=== PATIENT | male | born 1950 | race Caucasian/White ===

== ENCOUNTER 2018-03-27 11:32 | Day surgery (SDC) | payer MEDICARE, BC ==
[~2018-03-27] VITALS: Ht 188 cm; Wt 136.1 kg
[~2018-03-27 11:32] MED LIST: ALLO100 PO; ALLO300 PO; ALPR.5 PO; ASPI325 PO; ATOR10 PO; ATOR20 PO; BENAML20/5 PO; CELE100 PO; CELE200 PO; COLCHICINE0.6 MG PO; COLCRYS0.6 MG PO; CRANBERRY250 MG PO; CRANBERRY500 M1 PO; CRUTCH2 USE; Coq-10100 MG PO; Cranberry500 M1 PO; Cyclobenzaprine5 MG PO; GLIP2.5ER PO; GLIP5 PO; GLUC500 PO; Hair, Skin & N1 EACH PO; IBUP600 PO; METF500 PO; METF500C PO; MULVITMIND PO; Multiple Vitam1 EAC1 PO; OMEGA 3 KRILL OIL PO; OMEPRAZOLE MAGN20 MG PO; OXYACE5T PO; OXYC15ER PO; OXYC5 PO; Omega 3 1,0001 EACH PO; Red Yeast Rice600 MG; TESTOSTERONE IM; UBID10; XARELTO10 MG PO; [UNRECOGNIZED DRUG - OTHER]
--- NOTE | 2018-03-27 13:57 | NUR ---
03/27/18 1359 Jahaira Coleman 1315 assumed care of pt from [facility].jst. pt sitting up in chair w/foot up on pillow. ice pack w/instructions for use placed. drinking cranberry juice no c/o nausea and denied pain
== END 2018-03-27 13:57 | disposition home or self-care (01) ==
LOC: ORSCSDS 11:32
PROVIDERS: Podiatrist
PROC: 0Y6Y0Z0 Detachment at Left 5th Toe, Complete, Open Approach (ICD-10-PCS; principal; 2018-03-27 12:30)
DX: L97.521 Non-pressure chronic ulcer of other part of left foot limited to breakdown of skin (principal); E11.621 Type 2 diabetes mellitus with foot ulcer; L85.9 Epidermal thickening, unspecified; I10 Essential (primary) hypertension; I25.10 Atherosclerotic heart disease of native coronary artery without angina pectoris; G47.33 Obstructive sleep apnea (adult) (pediatric); Z87.891 Personal history of nicotine dependence; E11.9 Type 2 diabetes mellitus without complications; E66.9 Obesity, unspecified; Z68.38 Body mass index [BMI] 38.0-38.9, adult; Z79.899 Other long term (current) drug therapy
CPT/HCPCS: 82947; 88305; 88311; J0690; J2250; J3010; J7120

== ENCOUNTER → 2019-08-14 | Outpatient (CLI) | payer MEDICARE, BC | END | disposition home or self-care (01) | LOC: LAB 08:32 → LAB SHORT 08:32 | DX: L90.5 Scar conditions and fibrosis of skin (principal) | CPT/HCPCS: 88305 ==

== ENCOUNTER → 2020-06-21 | Outpatient (CLI) | payer MEDICARE, BC | LOC: LAB SHORT 12:18 | DX: L82.1 Other seborrheic keratosis (principal) | CPT/HCPCS: 88305 ==

== ENCOUNTER 2022-01-16 01:43 | Day surgery (SDC) | payer MEDICARE, BC | END 2022-01-16 23:34 | disposition home or self-care (01) | LOC: WOUND 01:43 | DX: L03.115 Cellulitis of right lower limb (principal); E11.9 Type 2 diabetes mellitus without complications; Z86.718 Personal history of other venous thrombosis and embolism; M10.9 Gout, unspecified; N40.0 Benign prostatic hyperplasia without lower urinary tract symptoms; Z87.891 Personal history of nicotine dependence; Z88.8 Allergy status to other drugs, medicaments and biological substances ==

== ENCOUNTER 2022-01-23 01:59 | Day surgery (SDC) | payer MEDICARE, BC | END 2022-01-23 23:26 | disposition home or self-care (01) | LOC: WOUND 01:59 | DX: E11.622 Type 2 diabetes mellitus with other skin ulcer (principal); L97.812 Non-pressure chronic ulcer of other part of right lower leg with fat layer exposed; M10.9 Gout, unspecified; L03.115 Cellulitis of right lower limb; Z86.718 Personal history of other venous thrombosis and embolism; N40.0 Benign prostatic hyperplasia without lower urinary tract symptoms | CPT/HCPCS: A9270 ==

== ENCOUNTER 2022-01-31 00:21 | Day surgery (SDC) | payer MEDICARE, BC | END 2022-01-31 22:58 | disposition home or self-care (01) | LOC: WOUND 00:21 | DX: E11.622 Type 2 diabetes mellitus with other skin ulcer (principal); L97.812 Non-pressure chronic ulcer of other part of right lower leg with fat layer exposed; L03.115 Cellulitis of right lower limb; Z86.718 Personal history of other venous thrombosis and embolism; M10.9 Gout, unspecified; N40.0 Benign prostatic hyperplasia without lower urinary tract symptoms | CPT/HCPCS: A9270; G0463 ==

== ENCOUNTER 2022-02-08 06:14 | Day surgery (SDC) | payer MEDICARE, BC | END 2022-02-08 23:00 | disposition home or self-care (01) | LOC: WOUND 06:14 | DX: E11.622 Type 2 diabetes mellitus with other skin ulcer (principal); L97.812 Non-pressure chronic ulcer of other part of right lower leg with fat layer exposed; L03.115 Cellulitis of right lower limb; Z86.718 Personal history of other venous thrombosis and embolism; M10.9 Gout, unspecified; N40.0 Benign prostatic hyperplasia without lower urinary tract symptoms | CPT/HCPCS: A9270; G0463 ==

== ENCOUNTER 2022-02-15 01:31 | Day surgery (SDC) | payer MEDICARE, BC | END 2022-02-15 22:50 | disposition home or self-care (01) | LOC: WOUND 01:31 | DX: E11.622 Type 2 diabetes mellitus with other skin ulcer (principal); L97.812 Non-pressure chronic ulcer of other part of right lower leg with fat layer exposed; L03.115 Cellulitis of right lower limb; Z86.718 Personal history of other venous thrombosis and embolism; M10.9 Gout, unspecified; N40.0 Benign prostatic hyperplasia without lower urinary tract symptoms | CPT/HCPCS: G0463 ==

== ENCOUNTER 2022-02-22 00:50 | Day surgery (SDC) | payer MEDICARE, BC | END 2022-02-22 23:57 | disposition home or self-care (01) | LOC: WOUND 00:50 | DX: E11.622 Type 2 diabetes mellitus with other skin ulcer (principal); L97.812 Non-pressure chronic ulcer of other part of right lower leg with fat layer exposed; L03.115 Cellulitis of right lower limb; Z86.718 Personal history of other venous thrombosis and embolism; M10.9 Gout, unspecified; N40.0 Benign prostatic hyperplasia without lower urinary tract symptoms | CPT/HCPCS: G0463 ==

== ENCOUNTER 2022-03-08 00:38 | Day surgery (SDC) | payer MEDICARE, BC | END 2022-03-08 23:08 | disposition home or self-care (01) | LOC: WOUND 00:38 | DX: E11.622 Type 2 diabetes mellitus with other skin ulcer (principal); L97.812 Non-pressure chronic ulcer of other part of right lower leg with fat layer exposed; L03.115 Cellulitis of right lower limb; Z86.718 Personal history of other venous thrombosis and embolism; M10.9 Gout, unspecified; N40.0 Benign prostatic hyperplasia without lower urinary tract symptoms | CPT/HCPCS: G0463 ==

== ENCOUNTER 2023-02-01 08:11 | Day surgery (SDC) | payer MEDICARE, OTHER ==
[~2023-02-01] VITALS: Ht 188 cm; Wt 132.0 kg
[2023-02-01] VITALS (8 sets, daily range): BP systolic 99–135; BP diastolic 52–76
[~2023-02-01 08:11] MED LIST changes: +LIVALO2 MG PO; +LOTREL 10-20 M1 EACH PO; +RED YEAST RICE PO; +THERA-D2000 UNIT PO; +Vitamin B-Comp1 EACH PO; +ZINC220 PO
[2023-02-01] MEDS ORDERED: TRAM50 PO (08:44)
[2023-02-01] MEDS ORDERED: VITAMIN E100 UNI1 PO (08:45)
[2023-02-01] MEDS ORDERED: LACT10SY PO (08:46)
[2023-02-01] MEDS ORDERED: FISH OIL 1,0001 EA10 PO (08:46)
[2023-02-01] MEDS ORDERED: XARELTO20 MG PO (08:47)
--- NOTE | 2023-02-01 11:44 | NUR ---
1015 PATIENT RETURNED FROM THE CATHLAB VIA RECLINER WITH TR BAND TO THE RECOVERY ROOM. PLACED ON THE MONITOR AND CALL LIGHT IN REACH. VVS. RIGHT RADIAL WITH 13 ML OF AIR IN THE BAND, NO BLEEDING, NO HEMATOMA NOTED. SBAR RECEIVED FROM XAVI ORTEGA.
--- NOTE | 2023-02-01 11:46 | NUR ---
1030 BREAKFAST TRAY SERVED, COFFEE GIVEN TO THE PATIENT, PATIENT FEEDING SELF. TR BAND TO THE RIGHT RADIAL UNCHANGED.
--- NOTE | 2023-02-01 11:47 | NUR ---
1100 TR BAND UNCHANGED NO BLEEDING, NO HEMATOMA. USING URINAL, 200 ML OF CLEAR YELLOW URINE NOTED.
[2023-02-01] MEDS ORDERED: CLOP75 PO (11:49)
--- NOTE | 2023-02-01 12:20 | NUR ---
BEGAN REMOVING AIR FROM THE TR BAND. NO BLEEDING NOTED.
--- NOTE | 2023-02-01 13:51 | NUR ---
PIV REMOVED AND CATH TIP INTACT. PRESSURE DRESSING APPLIED. TR BAND REMOVED. SITE CLEANED AND CLOTH DOT APPLIED. WHITE BOARD REAPPLIED. PATIENT DRESSED WITH ASSISTANCE. REVEIWED ALL DISCHARGE INSTRUCTIONS. COPIES GIVEN TO THE PATIENT THE OFFICE WILL CALL THE PAITENT WILL FOLLOW UP APPOINTMENT. PATIENT TO A WHEELCHAIR AND DISCHARGED HOME WITH [employer]PERATIONS SPECIALIST.
== END 2023-02-01 16:17 | disposition home or self-care (01) ==
LOC: MHTC 08:11
DX: I25.10 Atherosclerotic heart disease of native coronary artery without angina pectoris (principal); I11.0 Hypertensive heart disease with heart failure; I50.30 Unspecified diastolic (congestive) heart failure; E78.5 Hyperlipidemia, unspecified; E11.9 Type 2 diabetes mellitus without complications; G47.33 Obstructive sleep apnea (adult) (pediatric); I87.2 Venous insufficiency (chronic) (peripheral); E66.01 Morbid (severe) obesity due to excess calories; Z88.8 Allergy status to other drugs, medicaments and biological substances; Z79.01 Long term (current) use of anticoagulants; Z79.899 Other long term (current) drug therapy
CPT/HCPCS: 76937; 85347; 93454; 99152; 99153; A9270; C1769; C1874; C1887; C1894; C9600; J1644; J3010; J3246; J7030; J7050; Q9967

== ENCOUNTER 2023-08-15 03:04 | Day surgery (SDC) | payer MEDICARE, OTHER ==
[~2023-08-15 03:04] MED LIST changes: +CLOP75 PO; +FISH OIL 1,0001 EA10 PO; +LACT10SY PO; +TRAM50 PO; +VITAMIN E100 UNI1 PO; +XARELTO20 MG PO
== END 2023-08-15 22:56 | disposition home or self-care (01) ==
LOC: WOUND 03:04
DX: E11.622 Type 2 diabetes mellitus with other skin ulcer (principal); L97.812 Non-pressure chronic ulcer of other part of right lower leg with fat layer exposed; Z86.718 Personal history of other venous thrombosis and embolism
CPT/HCPCS: A6213; G0463

== ENCOUNTER 2023-09-03 02:34 | Day surgery (SDC) | payer MEDICARE, OTHER ==
[2023-09-03] MEDS ORDERED: Lidocaine HCl 4% Cream 5 GM ONE (10:48)
== END 2023-09-03 23:24 | disposition home or self-care (01) ==
LOC: WOUND 02:34
DX: S81.812A Laceration without foreign body, left lower leg, initial encounter (principal); W22.8XXA Striking against or struck by other objects, initial encounter; E11.622 Type 2 diabetes mellitus with other skin ulcer; L97.822 Non-pressure chronic ulcer of other part of left lower leg with fat layer exposed; Z86.718 Personal history of other venous thrombosis and embolism
CPT/HCPCS: A6213; A9270; G0463

== ENCOUNTER 2023-09-12 02:25 | Day surgery (SDC) | payer MEDICARE, OTHER | END 2023-09-12 22:55 | disposition home or self-care (01) | LOC: WOUND 02:25 | DX: S81.802D Unspecified open wound, left lower leg, subsequent encounter (principal); S81.801D Unspecified open wound, right lower leg, subsequent encounter; L97.822 Non-pressure chronic ulcer of other part of left lower leg with fat layer exposed; E11.622 Type 2 diabetes mellitus with other skin ulcer; Z86.718 Personal history of other venous thrombosis and embolism; X58.XXXD Exposure to other specified factors, subsequent encounter | CPT/HCPCS: G0463 ==

== ENCOUNTER 2023-09-14 17:09 | Inpatient (IN) | payer MEDICARE, OTHER ==
[~2023-09-14] VITALS: Ht 188 cm; Wt 111.3 kg
[2023-09-14 17:38] LABS: BASOPHILS ABSOLUTE AUTO 0.08 K/mm3 (0.00-0.23); BASOPHILS PERCENT AUTO 1 % (0-2); EOSINOPHILS ABSOLUTE AUTO 0.23 K/mm3 (0.00-0.68); EOSINOPHILS PERCENT AUTO 4 % (0-6); Hematocrit 40.4 % (37.0-53.0); Hemoglobin 13.9 g/dL (13.5-17.5); IMMATURE GRAN ABSOLUTE AUTO 0.01 K/mm3 (0.00-0.10); IMMATURE GRAN PERCENT AUTO 0 % (0-1); LYMPHOCYTES ABSOLUTE AUTO 1.54 K/mm3 (0.84-5.20); LYMPHOCYTES PERCENT AUTO 24 % (21-46); MONOCYTES ABSOLUTE AUTO 0.57 K/mm3 (0.16-1.47); MONOCYTES PERCENT AUTO 9 % (4-13); Mean Corpuscular HGB Conc 34.4 g/dL (31.5-36.5); Mean Corpuscular Volume 93 fL (80-100); Mean Platelet Volume 10.1 fL (9.1-12.4); NEUTROPHILS ABSOLUTE AUTO 4.02 K/mm3 (1.96-9.15); NEUTROPHILS PERCENT AUTO 62 % (41-73); Platelet Count 135 K/mm3 (150-400); RDW Coefficient Variation 14.7 % (11.7-14.2); RDW Standard Deviation 50.4 fL (35.1-46.3); Red Blood Cell Count 4.35 M/mm3 (4.30-5.90); White Blood Cell Count 6.45 K/mm3 (4.00-11.30)
[2023-09-14 17:58] LABS: Albumin, Blood 4.2 g/dL (3.4-5.0); Albumin/Globulin Ratio 1.4 (0.8-1.8); Bilirubin, Total 1.3 mg/dL (0.1-1.0); Bun/Creatinine Ratio 22.9 (12.0-20.0); Calcium, Blood 9.7 mg/dL (8.5-10.1); Creatinine, Blood 0.74 mg/dL (0.60-1.20); Globulin, Blood 3.1 g/dL (2.2-4.0); Potassium, Blood 3.7 mmol/L (3.5-5.5); Total Protein, Blood 7.3 g/dL (6.4-8.2)
[2023-09-14] MEDS ORDERED: FLUTICASONE PRO16 GM (18:24)
[2023-09-14] MEDS ORDERED: DOXAZOSIN MESYLA1 M2 PO (18:25)
[2023-09-14] MEDS ORDERED: PIOGLITAZONE HC15 MG PO (18:25)
[2023-09-14] MEDS ORDERED: Meclizine HCl 25 MG Tab PO ONE (20:05)
[2023-09-14] MEDS ORDERED: Ondansetron HCl 2 MG / ML 2ML Vial IV PRN (22:25)
[2023-09-14] MEDS ORDERED: Acetaminophen 325 MG TABLET PO PRN (22:25)
[2023-09-14] MEDS ORDERED: OxyCODONE HCL 5 MG TAB PO PRN (22:30)
[2023-09-14] MEDS ORDERED: Lactulose 20 GM/30 ML UDC PO PRN (23:25)
[2023-09-14 23:27] LABS: Anti-Xa UFH, PHA Monitoring 0.2 IU/mL; International Normalized Ratio 1.23
[2023-09-14] MEDS ORDERED: Heparin Sodium,Porcine/0.5 NS 500 ML IV SCH (23:40)
[2023-09-14] MEDS ORDERED: Heparin Sodium 5000 Units/ML 1ML MDV IV ONE (23:40)
[2023-09-15] VITALS (10 sets, daily range): BP systolic 115–139; BP diastolic 59–87
[2023-09-15] MEDS ORDERED: Atropine Sulfate 0.1 MG/ML 10ML SYR IV PRN (01:55)
[2023-09-15 03:46] LABS: BASOPHILS ABSOLUTE AUTO 0.07 K/mm3 (0.00-0.23); BASOPHILS PERCENT AUTO 2 % (0-2); EOSINOPHILS ABSOLUTE AUTO 0.27 K/mm3 (0.00-0.68); EOSINOPHILS PERCENT AUTO 6 % (0-6); Hematocrit 37.6 % (37.0-53.0); Hemoglobin 12.9 g/dL (13.5-17.5); IMMATURE GRAN ABSOLUTE AUTO 0.01 K/mm3 (0.00-0.10); IMMATURE GRAN PERCENT AUTO 0 % (0-1); LYMPHOCYTES ABSOLUTE AUTO 1.32 K/mm3 (0.84-5.20); LYMPHOCYTES PERCENT AUTO 31 % (21-46); MONOCYTES ABSOLUTE AUTO 0.48 K/mm3 (0.16-1.47); MONOCYTES PERCENT AUTO 11 % (4-13); Mean Corpuscular HGB 31.9 pg (26.0-34.0); Mean Corpuscular HGB Conc 34.3 g/dL (31.5-36.5); Mean Corpuscular Volume 93 fL (80-100); Mean Platelet Volume 10.8 fL (9.1-12.4); NEUTROPHILS ABSOLUTE AUTO 2.14 K/mm3 (1.96-9.15); NEUTROPHILS PERCENT AUTO 50 % (41-73); Platelet Count 116 K/mm3 (150-400); RDW Coefficient Variation 14.6 % (11.7-14.2); RDW Standard Deviation 49.5 fL (35.1-46.3); Red Blood Cell Count 4.04 M/mm3 (4.30-5.90); White Blood Cell Count 4.29 K/mm3 (4.00-11.30)
[2023-09-15 04:15] LABS: Albumin, Blood 3.5 g/dL (3.4-5.0); Albumin/Globulin Ratio 1.3 (0.8-1.8); Bilirubin, Total 1.2 mg/dL (0.1-1.0); Bun/Creatinine Ratio 23.9 (12.0-20.0); Calcium, Blood 9.3 mg/dL (8.5-10.1); Creatinine, Blood 0.63 mg/dL (0.60-1.20); Globulin, Blood 2.7 g/dL (2.2-4.0); Magnesium, Blood 2.1 mg/dL (1.6-2.4); Potassium, Blood 3.5 mmol/L (3.5-5.5); Total Protein, Blood 6.2 g/dL (6.4-8.2)
--- NOTE | 2023-09-15 05:53 | NUR ---
ARRIVAL/SHIFT SUMMARY PT ARRIVED TO PCU AT 2350 VIA ER ARABELLA REPORT FROM XAVI ALCALA. PT A&O X4, ALTHOUGH MILD FORGETFULNESS NOTED AT TIMES. PT PLEASANT AND COOPERATIVE WITH CARE. VSS; SBP 117 - 130'S, HRR AFIB IN 30 - 50'S; PT OCCASSIONALLY TOUCHING 26-28, BUT MOSTLY SUSTAINING 40'S. PT SYMPTOMATIC AT TIMES; DIZZY, COOL, LIGHTHEADED. HOSPITALIST NOTIFIED ABOUT PT HR TOUCHING INTO 20'S; NO NEW ORDERS. RN TO MONITOR AND IF PT HR CONTINUES TO DECREASE OR SUSTAIN IN 20'S, RN TO NOTIFY PROVIDER, OR IF CHANGE TO OTHER VITALS. CPAP AT BEDSIDE, PT WORE THROUGHOUT THE NIGHT; OCCASSIONAL DESAT OF 02 AT 84% WITH CPAP ON. PT USING URINAL INDEPENDENTLY AT BEDSIDE. PT REPORTS NO CONCERNS GI/GI. PT'S SKIN OVERALL FRAGILE, SKIN TEARS AND BRUISES SCATTERED THROUGHOUT. BLE EDEMA NOTED, R>L; BROWN DISCOLORATION AND SCATTERED SCABS NOTED. HEPARIN PER PHARMACY. PT ABLE TO MAKE NEEDS KNOWN, CALL LIGHT IN REACH. WILL UPDATE ONCOMING RN. PT ORIENTED TO ROOM AND CALL LIGHT.
[2023-09-15] MEDS ORDERED: MetFORMIN HCl 500 mg PO SCH (08:00)
[2023-09-15] MEDS ORDERED: Dose Adjust by Pharmacy XX STA ×2 (08:39→13:42)
[2023-09-15] MEDS ORDERED: Allopurinol 300 MG Tab PO SCH (09:00)
[2023-09-15] MEDS ORDERED: Multivitamins/Minerals TAB PO SCH (09:00)
[2023-09-15] MEDS ORDERED: Docusate Sodium 100 MG Cap PO SCH (09:00)
[2023-09-15] MEDS ORDERED: Fluticasone 0.05% Nasal Spray SCH (09:00)
[2023-09-15] MEDS ORDERED: Omeprazole 20 MG CapCR PO SCH (09:00)
[2023-09-15] MEDS ORDERED: Clopidogrel Bisulfate 75 MG Tab PO SCH (09:00)
[2023-09-15] MEDS ORDERED: Docosahexanoic Acid/EPA 1,000 MG CAP PO SCH (09:00)
[2023-09-15] MEDS ORDERED: Pioglitazone HCl 15 MG Tab PO SCH (09:00)
[2023-09-15] MEDS ORDERED: Vitamin B Complex 1 EA Softgel PO SCH (09:00)
[2023-09-15] MEDS ORDERED: Cholecalciferol 1000 Unit Tablet (=25MCG) PO SCH (09:00)
[2023-09-15] MEDS ORDERED: Doxazosin Mesylate 2 MG Tab PO SCH (09:00)
[2023-09-15] MEDS ORDERED: Insulin Regular 100 UNIT/ML 10ML Vial SC SCH ×2 (11:30)
--- NOTE | 2023-09-15 18:25 | NUR ---
PT SUMMARY; PT HAS A RECEIVING BED UP IN [facility] B RM 837, PT WAS INFOMRED, TRANSPORTATION TO ARRIVE AT 1830. NO ACUTE CHANGE FOR THE SHIFT, PT STILL BRADYING DOWN TO HIGH 20'S 25-28 WHEN ASLEEP, ASYMPTOMATIC T/O SHIFT, SBP 120-130'S, SATS ABOVE 95% ON RA, CPAP USE WHEN ASLEEP. AFERBILE. PT GOT UP TO THE BEDSIDE COMMODE ONCE FOR BOWEL MOVEMENT, HAS BEEN USING URINAL FOR VOIDING. ZIOPATCH REMOVED AND HAS SOME REDNESS MARKINGS FROM THE ADHESIVE BARRIER CREAM APPLIED AND HAS HELPED WITH THE REDNESS. PT HAS BEEN CALLING APPROPRIATELY, NO OTHER ISSUES REPORTED FOR THE SHIFT. WILL REPORT TO RECEIVING RN FROM [facility].
--- NOTE | 2023-09-15 18:58 | NUR ---
REPORT GIVEN TO JARED HURLEY FROM [facility], TRANSPORTATION CAME AND PCIK UP PT AT APPROX 1850 ALL BELONGINGS SENT WITH THE PT. HEP GTT AND IV PUMP SENT WELL
== END 2023-09-15 19:10 | disposition short-term general hospital (02) | DRG 310 ==
LOC: ER 17:09 → PCU 17:10
PROVIDERS: Student in an Organized Health Care Education/Training Program; ADMIT Student in an Organized Health Care Education/Training Program
DX: R00.1 Bradycardia, unspecified (principal); I48.19 Other persistent atrial fibrillation; I25.10 Atherosclerotic heart disease of native coronary artery without angina pectoris; I10 Essential (primary) hypertension; E78.5 Hyperlipidemia, unspecified; E66.9 Obesity, unspecified; E11.9 Type 2 diabetes mellitus without complications; M19.90 Unspecified osteoarthritis, unspecified site; M10.9 Gout, unspecified; L25.1 Unspecified contact dermatitis due to drugs in contact with skin; D69.6 Thrombocytopenia, unspecified; G47.33 Obstructive sleep apnea (adult) (pediatric); Z99.89 Dependence on other enabling machines and devices; Z88.8 Allergy status to other drugs, medicaments and biological substances; Z91.040 Latex allergy status; Z79.899 Other long term (current) drug therapy; Z79.891 Long term (current) use of opiate analgesic; Z86.718 Personal history of other venous thrombosis and embolism; Z79.84 Long term (current) use of oral hypoglycemic drugs; Z98.890 Other specified postprocedural states; Z90.49 Acquired absence of other specified parts of digestive tract; Z87.891 Personal history of nicotine dependence; Z96.653 Presence of artificial knee joint, bilateral; Z95.5 Presence of coronary angioplasty implant and graft; Z68.36 Body mass index [BMI] 36.0-36.9, adult; Z79.01 Long term (current) use of anticoagulants
CPT/HCPCS: 36415; 71046; 80053; 82947; 83036; 83735; 84484; 85025; 85520; 85610; 85730; 93005; 93010; 94660; 94762; 96365; 96366; 96376; 99285-25; A9270; C8929; G0378; J1644; J1815; Q9957

== ENCOUNTER 2023-09-26 01:22 | Day surgery (SDC) | payer MEDICARE, OTHER ==
[~2023-09-26 01:22] MED LIST changes: +DOXAZOSIN MESYLA1 M2 PO; +FLUTICASONE PRO16 GM; +PIOGLITAZONE HC15 MG PO
== END 2023-09-27 05:19 | disposition home or self-care (01) ==
LOC: WOUND 01:22
DX: E11.622 Type 2 diabetes mellitus with other skin ulcer (principal); L97.822 Non-pressure chronic ulcer of other part of left lower leg with fat layer exposed; Z87.718 Personal history of other specified (corrected) congenital malformations of genitourinary system
CPT/HCPCS: G0463

== ENCOUNTER 2024-04-07 08:35 | Day surgery (SDC) | payer OTHER ==
[2024-04-07] VITALS (14 sets, daily range): BP systolic 111–137; BP diastolic 68–93
[~2024-04-07] VITALS: Ht 185.4 cm; Wt 108.8 kg
[~2024-04-07 08:35] MED LIST changes: +Acetaminophen 500 MG Tab PO SCH; +Bupivacaine 0.5% HCl 5 MG/ML 30MLVIAL ONE; +CeFAZolin Sodium 2,000 MG in NS 100 ML IV SCH; +Chlorhexidine Mouth Care 15 ML UDC MT SCH; +Dexamethasone Sod Phos 10 MG/ML 1ML VIAL ONE; +FentaNYL Citrate 50 MCG/ML 2 ML Injection ONE; +Lactated Ringer's 1,000 ML IV SCH; +METO25ER PO; +Midazolam HCl 1MG / ML 2ML Vial ONE; +Ondansetron HCl 2 MG / ML 2ML Vial ONE; +OxyCODONE HCL 10 MG TABCR PO SCH; +Tranexamic Acid 100 ML IV SCH; +propofoL 60 ML IV ONE
[2024-04-07] MEDS ORDERED: Ropivacaine 0.5% HCl/Pf 123.125 MG,EPINEPHrine HCL 0.25 MG,Ketorolac Tromethamine 15 MG... INFIL SCH (08:45)
[2024-04-07] MEDS ORDERED: Midazolam HCl 1MG / ML 2ML Vial IV ONE (08:50)
[2024-04-07] MEDS ORDERED: Lidocaine HCl 1% 5 ML SYR INJ ONE (08:50)
[2024-04-07] MEDS ORDERED: Ondansetron HCl 2 MG / ML 2ML Vial IV PRN ×2 (08:50→11:25)
[2024-04-07] MEDS ORDERED: Lactated Ringer's 1,000 ML IV SCH ×2 (08:50→11:35)
[2024-04-07] MEDS ORDERED: CLOP75 PO (08:55)
[2024-04-07] MEDS ORDERED: Albuterol 2.5 MG/3 ML VIAL INH PRN (08:55)
[2024-04-07] MEDS ORDERED: ATOR10 PO (08:55)
[2024-04-07] MEDS ORDERED: Famotidine 10 MG/ML 2ML Vial IV ONE (08:55)
[2024-04-07] MEDS ORDERED: Citric Acid/Sodium Citrate 30 ML BTL PO ONE (08:55)
[2024-04-07] MEDS ORDERED: FentaNYL Citrate 50 MCG/ML 2 ML Injection IV PRN ×2 (08:55)
[2024-04-07] MEDS ORDERED: Atropine Sulfate 0.1 MG/ML 10ML SYR IV PRN (08:55)
[2024-04-07] MEDS ORDERED: METF500 PO (08:57)
[2024-04-07] MEDS ORDERED: Phenylephrine HCl 100 MCG/ML-NS 10MLSYR (1MG/10ML) ONE (10:48)
[2024-04-07] MEDS ORDERED: Rivaroxaban 10 MG Tab PO SCH (11:25)
[2024-04-07] MEDS ORDERED: Metoclopramide HCl 5MG / ML 2ML Vial IV PRN (11:25)
[2024-04-07] MEDS ORDERED: OxyCODONE HCL 5 MG TAB PO PRN ×2 (11:25→11:30)
[2024-04-07] MEDS ORDERED: FLU VACC TS2024-25(6MOS UP)/PF 45 MCG/0.5 ML SYRINGE IM SCH (11:30)
[2024-04-07] MEDS ORDERED: Prochlorperazine Edisylate 10 mg Vial IV PRN (11:30)
[2024-04-07] MEDS ORDERED: Bisacodyl 10 MG Supp PR PRN (11:30)
[2024-04-07] MEDS ORDERED: DiphenhydrAMINE HCL 25 MG Cap PO PRN (11:30)
[2024-04-07] MEDS ORDERED: Promethazine HCl 25 MG Tab PO PRN (11:30)
[2024-04-07] MEDS ORDERED: HYDROmorphone HCl/Pf 1MG SYR IV PRN (11:35)
[2024-04-07] MEDS ORDERED: Magnesium Hydroxide Conc 10 ML UDC PO PRN (11:35)
[2024-04-07] MEDS ORDERED: Ketorolac Tromethamine 15mg Vial IV SCH (12:00)
--- NOTE | 2024-04-07 13:15 | NUR ---
ARRIVED TO PT TO RM 216 APPROX 1300. S/P L TOTAL HIP. PRINEO DRESSING INTACT, NO DRAINAGE. POLAR PACK IN PLACE. SCDS. VSS. PT DENIES ANY PAIN, ABLE TO MOVE BLE & WIGGLE TOES. STRONG PULSE, CAP REFILL <3 SEC. PER SQL PROGRAMMERXAVI Mtz, PT REQUIRED STRAIGHT CATH FOR 800ML APPROX DONE @1234 BECAUSE BLADDER SCAN 842ML IN PACU. ORIENTED TO & CALL LIGHT.
[2024-04-07] MEDS ORDERED: Acetaminophen 500 MG Tab PO SCH (16:00)
[2024-04-07] MEDS ORDERED: CeFAZolin Sodium 2,000 MG in NS 100 ML IV SCH (18:00)
--- NOTE | 2024-04-07 19:22 | NUR ---
SHIFT SUMMARY POD 0-L ROCÍO. PRINEO DRESSING IN PLACE, C/D/I. WBAT. PT WORKED W/THERAPY. PAIN MANAGED W/EMAR, PT STATES PAIN MOSTLY IN BACK R/T CHRONIC PAIN. CAP REFILL <3 SEC. DENIES N/T. STRONG PULSE. PT REPORTS DURING THERAPY HE VOIDED A LITTLE INTO TOLIET UNMEASURED. BS SHOWED >500ML IN BLADDER, AT THE TIME PT REFUSED STRAIGHT CATH. INFORMED ONCOMING RN SILVIA & DURING BEDSIDE REPORT PT REPORTS HE WOULD LIKE TO PERFORM HIS OWN STRAIGHT CATH SINCE HE HAS A HX OF NEEDING TO STRAIGHT CATH. VSS. AOX4. DENIES DYSPNEA. TOLERATING PO. CALL LIGHT IN REACH.
[2024-04-07] MEDS ORDERED: Docusate Sodium 100 MG Cap PO SCH (21:00)
[2024-04-08 03:20] VITALS: BP 121/64
--- NOTE | 2024-04-08 03:27 | NUR ---
SURGICAL SITE PT USED CALL LIGHT TO ALERT OF BLEEDING SURGICAL SITE. PRINEO DRESSING INTACT. BRUISING AT INCISION SITE, SITE DOES NOT FEEL HARD c PALPATION. BRIGHT RED SANG DRAINAGE FROM LOWER HALF OF SITE. SKIN CLEANED. SITE CLEANED c WOUND CLEANSER. AQUACEL PLACED OVER PRINEO DRESSING.
[2024-04-08] MEDS ORDERED: Omeprazole 20 MG CapCR PO SCH (06:00)
--- NOTE | 2024-04-08 06:38 | NUR ---
SHIFT SUMMARY POD 1 L ROCÍO. VSS. TOLERATING ORALS. AQUACEL REPLACED, PRINEO DRESSING UNDERNEATH CLEANED c STERILE SALIENE, SITE DRAINING SANG FLUID. PREVIOUS AQUACEL SATURATED IN APPROX 3 HOURS. PT REPORTS PAIN TOLERABLE, POLAR PACK IN USE, MEDICATED PER EMAR. PT REPORTS PAIN LOCALIZED TO L HIP AND "MUSCLE SPASMS" IN L KNEE. VOIDING. AMBULATES USING FWW c GB. ANTICIPATED TO WORK c PHYSCIAL THERAPY THEN DISCHARGE HOME LATER TODAY. PT DRESSED, CALL LIGHT IN REACH, WILL REPORT TO DAY RN.
[2024-04-08 07:02] VITALS: BP 128/78
[2024-04-08 07:11] LABS: BASOPHILS ABSOLUTE AUTO 0.05 K/mm3 (0.00-0.23); BASOPHILS PERCENT AUTO 1 % (0-2); EOSINOPHILS ABSOLUTE AUTO 0.12 K/mm3 (0.00-0.68); EOSINOPHILS PERCENT AUTO 2 % (0-6); Hematocrit 38.3 % (37.0-53.0); Hemoglobin 13.1 g/dL (13.5-17.5); IMMATURE GRAN ABSOLUTE AUTO 0.02 K/mm3 (0.00-0.10); IMMATURE GRAN PERCENT AUTO 0 % (0-1); LYMPHOCYTES ABSOLUTE AUTO 0.99 K/mm3 (0.84-5.20); LYMPHOCYTES PERCENT AUTO 13 % (21-46); MONOCYTES ABSOLUTE AUTO 1.08 K/mm3 (0.16-1.47); MONOCYTES PERCENT AUTO 14 % (4-13); Mean Corpuscular HGB 31.9 pg (26.0-34.0); Mean Corpuscular HGB Conc 34.2 g/dL (31.5-36.5); Mean Corpuscular Volume 93 fL (80-100); Mean Platelet Volume 9.7 fL (9.1-12.4); NEUTROPHILS ABSOLUTE AUTO 5.64 K/mm3 (1.96-9.15); NEUTROPHILS PERCENT AUTO 71 % (41-73); Platelet Count 114 K/mm3 (150-400); RDW Coefficient Variation 12.5 % (11.7-14.2); RDW Standard Deviation 43.3 fL (35.1-46.3); Red Blood Cell Count 4.11 M/mm3 (4.30-5.90)
[2024-04-08 07:21] LABS: Bun/Creatinine Ratio 21.3 (12.0-20.0); Calcium, Blood 9.3 mg/dL (8.5-10.1); Creatinine, Blood 0.66 mg/dL (0.60-1.20); Magnesium, Blood 2.3 mg/dL (1.6-2.4); Potassium, Blood 3.9 mmol/L (3.5-5.5)
[2024-04-08] MEDS ORDERED: DOCU100 PO (07:26)
[2024-04-08] MEDS ORDERED: OXAYDO5 M1 PO (07:27)
[2024-04-08] MEDS ORDERED: OXAYDO5 M2 PO (07:27)
[2024-04-08] MEDS ORDERED: Rivaroxaban 10 MG Tab PO SCH (09:00)
[2024-04-08] MEDS ORDERED: Metoprolol Succinate 25 MG TABCR PO SCH (09:00)
[2024-04-08] MEDS ORDERED: Atorvastatin 10 MG Tab PO SCH (09:00)
[2024-04-08] MEDS ORDERED: Doxazosin Mesylate 2 MG Tab PO SCH (09:00)
[2024-04-08] MEDS ORDERED: MetFORMIN HCl 500 mg PO SCH (09:00)
[2024-04-08] MEDS ORDERED: Clopidogrel Bisulfate 75 MG Tab PO SCH (09:00)
[2024-04-08] MEDS ORDERED: Fluticasone 0.05% Nasal Spray SCH (09:00)
--- NOTE | 2024-04-08 12:33 | NUR ---
DISCHARGE SUMMARY POD1 L ROCÍO, A/X4, VSS, TOLERATING PO, PAIN MANAGED PER EMAR, HE REPORTS HAVING MUSCLE SPASMS TODAY AND STATED THAT HE GETS THEM INTERMITENTLY AND THAT THIS WAS NOT AN ISOLATED OR FIRST EVENT FOR THAT. HE WENT THROUGH 2 DRESSINGS LAST NIGHT PER NOC RN REPORT, HIS DRESSING WAS CHANGED AGAIN BY THIS RN DURING ASSESSEMTN. THE INCISION WAS CLEANED AND OBSERVED FOR BLEEDING, IT APPEARS TO BE COMING FROM A SMALL PIN SIZED SPOT ALONG THE INCISION LINE. THE INCISION WAS REINFORCED WITH 4X4 GAUZE AND COMPRESSION TAPE, DISCUSSED BLEEDING CONCERNS WITH ADMITTING MD WHO IS FINE WITH THIS DRESSING AND ASKED FOR HIM TO HOLD HIS BLOOD THINNERS X5 DAYS AND TO CALL HER OFFICE WITH AN UPDATE ON SUNDAY, THI INFORMATION WAS RELAYED TO HIM AND HIS DURING DC INSTRUCTIONS, ADDITOINAL ABD PADS AND JUAREZ WRAPS WERE ALSO PROVIDED FOR DRESSING CHANGES WITH AQUACELS FOR ONCE BLEEDING STOPS. DISCUSSED DISCHARGE INSTRUCTIONS WITH HIM INCLUDING HOME CARE, MEDICATIONS, AND FOLLOW UP APPOINTMENTS. NO QUESTIONS AT THIS TIME, ESCORTED OUT VIA WC TO PRIVATE AUTO TO GO HOME.
== END 2024-04-08 12:16 | disposition home or self-care (01) ==
LOC: ORSCMMR 08:35 → ORD 09:30 → ORSCMMR 09:30 → ORD 10:00 → ORSCMMR 10:00 → ORD 12:45 → SURS 12:58 → ORSCMMR 12:58 → SURS 04-08 12:16
PROVIDERS: Orthopaedic Surgery
PROC: 0SRB0JA Replacement of Left Hip Joint with Synthetic Substitute, Uncemented, Open Approach (ICD-10-PCS; principal; 2024-04-07 09:30)
DX: M16.12 Unilateral primary osteoarthritis, left hip (principal); I10 Essential (primary) hypertension; E11.9 Type 2 diabetes mellitus without complications; G47.33 Obstructive sleep apnea (adult) (pediatric); K21.9 Gastro-esophageal reflux disease without esophagitis; I25.10 Atherosclerotic heart disease of native coronary artery without angina pectoris; E66.9 Obesity, unspecified; Z68.31 Body mass index [BMI] 31.0-31.9, adult; Z79.899 Other long term (current) drug therapy
CPT/HCPCS: 36415; 51701; 72170; 80048; 82947; 83735; 85025; 97110; 97116; 97161; 97530; A9270; C1776; J0171; J0690; J0735; J1100; J1171; J1885; J2250; J2371; J2405; J2704; J2795; J3010; J7120

== ENCOUNTER 2024-06-23 08:14 | Day surgery (SDC) | payer OTHER ==
[~2024-06-23] VITALS: Ht 188 cm; Wt 109.2 kg
[~2024-06-23 08:14] MED LIST changes: -Acetaminophen 500 MG Tab PO SCH; -Bupivacaine 0.5% HCl 5 MG/ML 30MLVIAL ONE; +CONSTULOSE10 GM/15 M PO; -CeFAZolin Sodium 2,000 MG in NS 100 ML IV SCH; -Chlorhexidine Mouth Care 15 ML UDC MT SCH; +DOCU100 PO; -Dexamethasone Sod Phos 10 MG/ML 1ML VIAL ONE; -FentaNYL Citrate 50 MCG/ML 2 ML Injection ONE; -Lactated Ringer's 1,000 ML IV SCH; -Midazolam HCl 1MG / ML 2ML Vial ONE; +OXAYDO5 M1 PO; +OXAYDO5 M2 PO; -Ondansetron HCl 2 MG / ML 2ML Vial ONE; -OxyCODONE HCL 10 MG TABCR PO SCH; -Tranexamic Acid 100 ML IV SCH; -propofoL 60 ML IV ONE
[2024-06-23] MEDS ORDERED: OxyCODONE HCL 10 MG TABCR PO SCH (08:45)
[2024-06-23] MEDS ORDERED: Acetaminophen 500 MG Tab PO SCH (08:45)
[2024-06-23] MEDS ORDERED: Ropivacaine 0.5% HCl/Pf 123.125 MG,EPINEPHrine HCL 0.25 MG,Ketorolac Tromethamine 15 MG... INFIL SCH (08:45)
[2024-06-23] MEDS ORDERED: Lactated Ringer's 1,000 ML IV SCH (08:45)
[2024-06-23] MEDS ORDERED: Chlorhexidine Mouth Care 15 ML UDC MT SCH (08:45)
[2024-06-23] MEDS ORDERED: CeFAZolin Sodium 2,000 MG in NS 100 ML IV SCH (08:45)
[2024-06-23] MEDS ORDERED: Tranexamic Acid 100 ML IV SCH (08:45)
[2024-06-23] MEDS ORDERED: CeFAZolin Sodium 2,000 MG VIAL ONE (09:12)
--- NOTE | 2024-06-23 09:38 | NUR ---
RIGHT HIP SKIN PREP PERFORMED. RAZOR ABRASION NOTED TO RIGHT INGUINAL AREA POST CLIPPING. INFORMED OR CHARGE NURSE. APPROX DIME SIZE HEALING OPEN WOUND TO RIGHT [place] AREA. INFORMED DR. RICCI. PHOTO TAKEN BY OR CHARGE NURSE WITH PATIENTS PERMISSION TO SHOW DR. RICCI. AFTER REVIEWING PHOTO, SURGERY CANCELLED BY DR. RICCI DUE TO OPEN WOUND. INFOMRED PATIENT TO CALL OFFICE TO RESCHEDULE. DISCHARGED TO HOME VIA W/C.
== END 2024-06-23 23:00 | disposition home or self-care (01) ==
LOC: ORSCMMR 08:14 → ORD 09:30 → ORSCMMR 13:10
DX: M16.11 Unilateral primary osteoarthritis, right hip (principal); Z53.9 Procedure and treatment not carried out, unspecified reason
CPT/HCPCS: A9270; J0171; J0690; J0735; J1885; J2795; J7120

== ENCOUNTER → 2024-06-24 | Day surgery (SDC) | payer MEDICARE, OTHER ==
[~2024-06-24] MED LIST changes: +Lidocaine HCl 4% Cream 5 GM ONE
== END ==
LOC: WOUND 04:29
DX: E11.622 Type 2 diabetes mellitus with other skin ulcer (principal); L97.212 Non-pressure chronic ulcer of right calf with fat layer exposed; I87.2 Venous insufficiency (chronic) (peripheral); I10 Essential (primary) hypertension; E11.51 Type 2 diabetes mellitus with diabetic peripheral angiopathy without gangrene; Z88.8 Allergy status to other drugs, medicaments and biological substances; Z91.040 Latex allergy status
CPT/HCPCS: A9270; G0463

== ENCOUNTER 2024-07-01 03:44 | Day surgery (SDC) | payer OTHER, MEDICARE ==
[~2024-07-01 03:44] MED LIST changes: -Lidocaine HCl 4% Cream 5 GM ONE
== END 2024-07-01 23:00 | disposition home or self-care (01) ==
LOC: WOUND 03:44
DX: E11.622 Type 2 diabetes mellitus with other skin ulcer (principal); L97.212 Non-pressure chronic ulcer of right calf with fat layer exposed; I87.2 Venous insufficiency (chronic) (peripheral); E11.51 Type 2 diabetes mellitus with diabetic peripheral angiopathy without gangrene; I10 Essential (primary) hypertension
CPT/HCPCS: G0463

== ENCOUNTER 2024-07-08 03:09 | Day surgery (SDC) | payer OTHER, MEDICARE | END 2024-07-08 23:35 | disposition home or self-care (01) | LOC: WOUND 03:09 | DX: L97.212 Non-pressure chronic ulcer of right calf with fat layer exposed (principal); L97.812 Non-pressure chronic ulcer of other part of right lower leg with fat layer exposed; I87.2 Venous insufficiency (chronic) (peripheral); E11.51 Type 2 diabetes mellitus with diabetic peripheral angiopathy without gangrene; I10 Essential (primary) hypertension | CPT/HCPCS: G0463 ==

== ENCOUNTER 2024-07-15 02:13 | Day surgery (SDC) | payer OTHER, MEDICARE | END 2024-07-15 23:38 | disposition home or self-care (01) | LOC: WOUND 02:13 | DX: E11.622 Type 2 diabetes mellitus with other skin ulcer (principal); L97.212 Non-pressure chronic ulcer of right calf with fat layer exposed; I87.2 Venous insufficiency (chronic) (peripheral); E11.51 Type 2 diabetes mellitus with diabetic peripheral angiopathy without gangrene; I10 Essential (primary) hypertension ==

== ENCOUNTER 2024-07-22 01:05 | Day surgery (SDC) | payer OTHER, MEDICARE | END 2024-07-22 23:00 | LOC: WOUND 01:05 | DX: L97.812 Non-pressure chronic ulcer of other part of right lower leg with fat layer exposed (principal); I87.2 Venous insufficiency (chronic) (peripheral); E11.51 Type 2 diabetes mellitus with diabetic peripheral angiopathy without gangrene; I10 Essential (primary) hypertension | CPT/HCPCS: G0463 ==